=== PATIENT | female | born 1970 | race Caucasian/White ===

== ENCOUNTER 2017-06-28 16:27 | Outpatient (CLI) | payer OTHER ==
--- NOTE | 2017-06-28 19:50 | MRI Report ---
EXAM: LEFT KNEE MRI WITHOUT CONTRAST EXAM DATE: 06/28/2017 05:22 PM. CLINICAL HISTORY: Left knee pain for one year. No history of trauma. COMPARISON: None. TECHNIQUE: Multiplanar, multisequence T1-weighted and fluid-sensitive sequences of the knee without c ontrast. Other: None. FINDINGS: Bones: Mild edema of the intercondylar notch of the femur. No visible fracture. There is tricompartme ntal osteophyte formation. Articular Cartilage: There is moderate thinning of the hyaline cartilage of the medial, lateral, and patellofemoral compartments. Medial Meniscus: There is an oblique undersurface tear of the body. Lateral Meniscus: The lateral meniscus is intact. Cruciate Ligaments: The anterior and posterior cruciate ligaments are intact. Collateral Ligaments: The medial collateral and lateral collateral ligamentous structures are intact. Tendons: The quadriceps, patellar, semimembranosus, and popliteus tendons are unremarkable. Musculature: No edema or fatty atrophy. Other: There is a moderate-sized joint effusion.. No popliteal cyst. No loose bodies. The medial and lateral retinacula are intact. The subcutaneous tissues and fat pads are unremarkable. IMPRESSION: 1. Mild tricompartmental osteoarthritis with a moderate-sized joint effusion. 2. Oblique undersurface tear of the body of the medial meniscus. [facility] MUSCULOSKELETAL RADIOLOGY SECTION Referring Provider Line: [phone] SITE ID: [id number]
== END 2017-06-28 16:28 | disposition home or self-care (01) ==
LOC: DI 16:27
PROVIDERS: ATTEND Nurse Practitioner Family
DX: S83.242A Other tear of medial meniscus, current injury, left knee, initial encounter (principal); M17.12 Unilateral primary osteoarthritis, left knee; M25.462 Effusion, left knee

== ENCOUNTER 2020-01-07 15:47 | Outpatient (CLI) | payer OTHER | END 2020-01-07 15:48 | disposition home or self-care (01) | LOC: DI 15:47 | DX: Z53.9 Procedure and treatment not carried out, unspecified reason (principal) ==